=== PATIENT | male | born 1955 | race Caucasian/White ===

== ENCOUNTER 2023-10-05 08:58 | Outpatient (CLI) | payer MEDICARE, BC | END 2023-10-05 08:59 | disposition home or self-care (01) | LOC: BICCT 08:58 | PROVIDERS: ATTEND Nurse Practitioner Family | DX: Z12.2 Encounter for screening for malignant neoplasm of respiratory organs (principal); F17.210 Nicotine dependence, cigarettes, uncomplicated; I25.10 Atherosclerotic heart disease of native coronary artery without angina pectoris; R91.8 Other nonspecific abnormal finding of lung field; Z79.899 Other long term (current) drug therapy | CPT/HCPCS: 36415; 71271; 80053; 80061; 81001; 83036; 84443; 85025 ==

== ENCOUNTER 2023-11-06 06:44 | Day surgery (SDC) | payer MEDICARE, BC ==
[2023-11-02 10:57] VITALS: BMI 34.3
[2023-11-06] MEDS ORDERED: PROPOFOL 40 ML ONE (10:00)
[2023-11-06] MEDS ORDERED: Lidocaine 1% PF 5 ML VIAL ONE (10:00)
== END 2023-11-06 11:47 | disposition home or self-care (01) ==
LOC: SDC 06:44
PROVIDERS: ATTEND Internal Medicine Gastroenterology
PROC: 0DBM8ZZ Excision of Descending Colon, Via Natural or Artificial Opening Endoscopic (ICD-10-PCS; principal; 2023-11-06)
DX: D12.4 Benign neoplasm of descending colon (principal); K57.30 Diverticulosis of large intestine without perforation or abscess without bleeding; K64.8 Other hemorrhoids; F17.200 Nicotine dependence, unspecified, uncomplicated; Z79.899 Other long term (current) drug therapy; Z90.49 Acquired absence of other specified parts of digestive tract
CPT/HCPCS: 88305; J2704

== ENCOUNTER 2023-11-13 13:56 | Outpatient (CLI) | payer MEDICARE, BC ==
[2023-11-13 15:11] LABS: #Eosinphils 0.1 10x3/uL (0.0-0.5); #Monocytes 0.8 10x3/uL (0.0-1.1); #Neutrophils 5.2 10x3/uL (1.5-8.4); %Basophils 0.3 % (0.0-2.0); %Eosinophils 1.1 % (0.0-6.0); %Lymphocytes 29.6 % (18.0-47.0); %Monocytes 9.4 % (0.0-10.0); Hematocrit 45.2 % (38.8-50.0); Hemoglobin 15.9 g/dL (13.5-17.5); Mean Corpuscular HGB CONC 35.2 g/dL (32.0-36.0); Mean Corpuscular Hemoglobin 32.3 pg (27.0-33.0); Mean Corpuscular Volume 91.9 fl (81.2-95.1); Mean Platelet Volume 9.3 fl (7.4-10.4); Platelet Count 263 10x3/uL (150-450); RBC Distribution Width 13.2 % (11.5-14.5); Red Blood Cell (RBC) Count 4.92 10x6/uL (4.32-5.72); White Blood Cell (WBC) Count 8.8 10x3/uL (3.5-10.5)
[2023-11-13 15:29] LABS: ALT (SGPT) 19 U/L (8-55); AST (SGOT) 13 U/L (5-34); Alkaline Phosphatase 77 U/L (40-110); Anion Gap 13 mmol/L (10-20); BUN (Urea Nitrogen) 18 mg/dL (8.4-25.7); Bilirubin, Total 0.4 mg/dL (0.2-1.2); Calc. Creatinine Clearance 0 mL/min (70-130); Calcium 8.8 mg/dL (7.8-10.44); Carbon Dioxide 21 mmol/L (23-31); Chloride 109 mmol/L (98-107); Estimated GFR 92; Glucose 93 mg/dL (80-115); Potassium 4.3 mmol/L (3.5-5.1); Sodium 139 mmol/L (136-145)
== END 2023-11-13 13:57 | disposition home or self-care (01) ==
LOC: LABBT 13:56
PROVIDERS: ATTEND Surgery
DX: Z01.818 Encounter for other preprocedural examination (principal); K60.3 Anal fistula
CPT/HCPCS: 80053; 85025; 93005; 93010

== ENCOUNTER 2023-11-17 07:05 | Day surgery (SDC) | payer MEDICARE, BC ==
[2023-11-13 15:01] VITALS: BMI 33.6
[2023-11-17] MEDS ORDERED: PROPOFOL 20 ML ONE (08:23)
[2023-11-17] MEDS ORDERED: fentaNYL PF 100 MCG/2 ML SYRINGE ONE (08:23)
[2023-11-17] MEDS ORDERED: Ondansetron PF 4 MG/2 ML Vial ONE (08:23)
[2023-11-17] MEDS ORDERED: Lidocaine 1% PF 5 ML VIAL ONE (08:23)
[2023-11-17] MEDS ORDERED: Dexamethasone 4 mg/ml Vial ONE (08:23)
[2023-11-17] MEDS ORDERED: Bupivacaine 0.25% HCL 30 ML VIAL ONE (09:00)
[2023-11-17] MEDS ORDERED: EPINEPHrine 1 MG/ML VIAL ONE (09:00)
[2023-11-17] MEDS ORDERED: Bacitracin Zinc Ointment 30 gm TUBE ONE (09:00)
[2023-11-17] MEDS ORDERED: Methylene Blue 50 MG/10 ML AMPUL ONE (09:00)
[2023-11-17] MEDS ORDERED: cefOXitin 2 GM VIAL ONE (09:28)
[2023-11-17] MEDS ORDERED: Sodium Chloride 0.9% 100 ML ONE (09:29)
[2023-11-17] MEDS ORDERED: Famotidine/PF 20 mg/2ml Vial ONE (09:44)
[2023-11-17] MEDS ORDERED: ePHEDrine Sulfate 50 MG/10 ML VIAL ONE (09:57)
== END 2023-11-17 12:13 | disposition home or self-care (01) ==
LOC: SDC 07:05
PROVIDERS: ATTEND Surgery
PROC: 0DQQXZZ Repair Anus, External Approach (ICD-10-PCS; principal; 2023-11-17)
DX: K60.3 Anal fistula (principal); F10.20 Alcohol dependence, uncomplicated; Z90.89 Acquired absence of other organs; Z79.899 Other long term (current) drug therapy; F17.210 Nicotine dependence, cigarettes, uncomplicated
CPT/HCPCS: 46270; J0171; Q9968; J0665; J0694; J1100; J2405; J2704; J3490; S0028

== ENCOUNTER 2024-10-24 14:33 | Outpatient (CLI) | payer MEDICARE, BC | END 2024-10-24 14:34 | disposition home or self-care (01) | LOC: BICCT 14:33 | PROVIDERS: ATTEND Nurse Practitioner Family | DX: Z12.2 Encounter for screening for malignant neoplasm of respiratory organs (principal); F17.210 Nicotine dependence, cigarettes, uncomplicated | CPT/HCPCS: 71271 ==